=== PATIENT | female | born 1985 | race Caucasian/White ===

== ENCOUNTER → 2018-06-22 09:00 | Outpatient (CLI) | payer OTHER, SELFPAY ==
[2018-06-22 08:55] VITALS: BMI 21.3
[2018-06-28 12:02] LABS: HPV APTIMA, High Risk Negative (Negative)
--- OUTSIDE RECORDS SUMMARY | 2018-08-08 22:34 | XMS RPT_ITS ---
:1985 Author Organization OHIP Care Team Providers Name Role Phone Leanne Manning Attending Unavailable Arvind Ramirez Referring Unavailable Leanne Manning Attending Unavailable Leanne Manning Referring Unavailable Arvind Ramirez Primary Care Unavailable ASSESSMENT, HEALTH RISK Attending Unavailable Arvind Ramirez Primary Care Unavailable PROBLEMS PROBLEMS DATE TYPE CONDITION / CODE ATTENDING STATUS SOURCE 06/23/2018 Unknown Z12.4 - Encounter Oj Manning for screening for [facility] malignant [facility] of cervix / Repository Z12.4(ICD-10) 06/22/2018 Unknown Z01.419 - Encounter Oj Manning for gynecological [facility] (general) (routine) Repository without abnormal findings / Z01.419(ICD-10) PROCEDURES PROCEDURES No Procedure Records FoundRESULTS RESULTS FIXED INTEREST DEALER OFFICE VISIT Observed: 06/22/2018 Status: F Source: [place] REPORT 9:34 AM [facility] [place] REPOSITORY [facility] 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 discussed change in breast implants. Last PAP: done History of abnormal PAP: no Female Reproductive History Last Menstral Period: 05/30/18 Questions: Metorrhagia: No, Sexually active: Yes, Dyspareunia: No, PCB: No ROS Const Constitutional: Reports as per HPI; denies poor appetite, fatigue, increased appetite, weight gain or weight loss Cardio Card: Denies chest pain Resp Resp: Denies dyspnea or cough GI GI: Reports as per HPI; denies bloating, abdominal pain, constipation, vomiting or nausea : Reports as per HPI and other; denies blood in urine, vaginal odor, vaginal itching, vaginal dryness, vaginal discharge, urinary urgency, urinary incontinence, urinary frequency, pelvic pain, painful urination, difficulty urinating, prolapse symptoms or nipple discharge Skin Skin/Breast: Denies breast pain, breast skin changes, nipple discharge, breast lump or changing lesions Exam Const General: cooperative, healthy appearing, comfortable, no acute distress, well developed, well groomed [facility] Head: normal to inspection, normocephalic Ears: hearing grossly normal bilaterally, external ears normal Nose: external nose normal Face and sinus: normal facial exam Neck Neck: normal visual inspection, full ROM, no lymphadenopathy Thyroid: thyroid normal Chest Chest palpation AND inspection: normal inspection of the chest Breast inspection: normal inspection of the breasts, normal inspection of the axillae Breast palpation: normal palpation of the breasts, normal palpation of the axillae, no axillary lymphadenopathy Resp Effort AND Inspection: normal respiratory effort GI Inspection: normal to inspection, non-distended Palpation: no guarding, soft, no hepatosplenomegaly General: bladder normal to palpation External Female Exam: normal external appearance, normal appearance of the urethra, no lesions Urethra: normal appearance of the urethra, normal palpation Speculum Exam - Vagina: normal appearance of the vagina, normal vaginal discharge Speculum Exam - Cervix: normal appearance of the cervix, no cervical discharge, no lesions, nontender Bimanual Exam- Vagina AND Uterus: No cervical tenderness, normal bimanual exam, uterine size normal, bladder normal to palpation, uterine mobility normal, uterine consistency normal, uterus non-tender, no cervical motion tenderness Bimanual Exam- Adnexa, other: normal adnexae, no adnexal masses, adnexae non-tender Skin General: no rashes or lesions noted Neuro General: alert, moves all extremities, no focal motor deficits Extrem General: no pedal edema, normal to inspection Psych Appearance: grossly normal Mental Status: mental status grossly normal Affect: normal affect Speech and Movement: speech and movement normal Attitude: cooperative Assessment AND Plan Problems 1. Encounter for gynecological examination without abnormal finding Z01.419 Plan Cervical cancer screening: pap hpv Breast cancer screening: clinical STD prevention and contraceptive options including their risks, benefits, and alternatives were reviewed with the patient and she chooses: declines Encouraged maintenance of a healthy weight and active lifestyle and handout given. Calcium/vitamin D recommendations provided. Annual exam handout including recommendations for good health guidelines and basic screening information given. Problem list up to date, see problem list details for any additional plan information. follow up in one year for annual health maintenance exam or sooner if needed. Orders Orders: Coding Level of Care Code Off vis,est,prev 18-39yrs Diagnoses Encounter for gynecological examination without abnormal finding Z01.419 Gynecological examination findings: abnormal findings ABSENT 06/22/18 0934 <Electronically signed by Leanne Manning MD> Date Leanne Manning MD Cosigner Signature: Date (if applicable) CC: PAP IG HPV APTIMA Collected: 06/22/2018 Status: F Source: [place] ,45 9:00 AM [facility] [place] REPOSITORY Order Comment: CYTOLOGY INFORMATION: - CLINICAL INFORMATION: - DATE LMP/MENOPAUSE: - COLLECTION VIAL: Thin Prep Vial - URGENT CARE PHYSICIAN ASSISTANT SOURCE: CERVICAL - COLLECTION TECHNIQUE: CX BROOM ONLY Specimen Comment: [id number] Specimen Comment: Source.............Cervix Specimen Comment: No. of containers..01 ThinPrep Vial TYPE CODE TESTS RESULT OUT OF RANGE REFERENCE UNITS LAB L7400.0800 . Normal DIAGN Comment Result Comment: NEGATIVE FOR INTRAEPITHELIAL LESION AND MALIGNANCY. THIS SPECIMEN WAS RESCREENED PART OF OUR INSPECTOR GENERAL PROGRAM. LAB L7400.0900 . Normal ADEQ Comment Result Comment: Satisfactory for evaluation. Endocervical and/or squamous metaplastic cells (endocervical component) are present. LAB L7400.1400 . Normal PERFORM Comment Result Comment: Hilary Cerda, Right Of Way Supervisor (ASCP) LAB L7400.1500 . Normal QC Comment REV Result Comment: Sneha Vega, Supervisory Right Of Way Supervisor (ASCP) LAB L7400.2575 . Normal TEST METHOD Comment Result Comment: This liquid based ThinPrep(R) pap test was screened with the use of an image guided system. LAB L7400.2600 . Normal . COMM LAB L7400.2700 . Normal PAPSMR Comment Result Comment: The Pap smear is a screening test designed to aid in the detection of premalignant and malignant conditions of the uterine cervix. It is not a diagnostic procedure and should not be used as the sole means of detecting cervical cancer. Both false-positive and false-negative reports do occur. LAB L7400.2760 Negative Normal HPV APTIMA, Negative HR Result Comment: This test detects fourteen high-risk HPV types (16/18/31/33/35/39/45/ 51/52/56/58/59/66/68) without differentiation. Performed at: [facility] - [facility] [id number] Lap Cutter: Ila Johnson MD, Phone: [phone] Performed at: =[facility] - [facility] [address] [id number] Lap Cutter: Ila Johnson MD, Phone: [phone] Performed By: #### L7400.0280 #### [facility] (refer to report for specific site) refer to report for address and phone number ASHANTI, EMPLOYEE Collected: 08/29/2017 Status: F Source: [place] 6:12 AM [facility] [place] REPOSITORY TYPE CODE TESTS RESULT OUT OF RANGE REFERENCE UNITS LAB L100.1000 4.4-11.0 K/mm3 Normal WBC 5.3 LAB L100.1200 4.2-5.4 M/mm3 Normal RBC 4.52 LAB L100.1300 12.0-15.0 g/dl Normal HGB 13.6 LAB L100.1400 37-47 % Normal HCT 41.5 LAB L100.1500 81-99 fL Normal MCV 91.8 LAB L100.1600 27.0-32.0 pg Normal MCH 30.1 LAB L100.1700 32-36 g/gl Normal MCHC 32.8 LAB L100.1810 11.6-14.6 % Normal RDW CV 13.0 LAB L100.1820 35.1-43.9 fl Normal RDW SD 43.0 LAB L100.1900 150-450 K/mm3 Normal PLT 203 LAB L100.2000 6.2-12.0 fl Normal MPV 10.9 LAB L100.2110 47-70 % Low NEUT% 46.7 LAB L100.2210 19-41 % High LY% 41.9 LAB L100.2310 0-10 % Normal MONO% 8.8 LAB L100.2410 0-5 % Normal EO% 1.7 LAB L100.2510 0-1 % Normal BASO% 0.7 LAB L100.2620 2.0-7.7 X10 3/uL Normal Absolute Neut 2.5 LAB L100.2720 0.83-4.51 X10 3/ul Normal Absolute Lymph 2.24 Performed By: #### L100.0200 #### [facility] [address] [place], [address] EMPLOYEE PROFILE Collected: 08/29/2017 Status: F Source: [place] 6:12 AM [facility] [place] REPOSITORY TYPE CODE TESTS RESULT OUT OF RANGE REFERENCE UNITS LAB L501.0100 74-106 mg/dL Normal GLU 83 Result Comment: Please note revised GLUCOSE reference range effective 2017. LAB L501.1000 7-18 mg/dL Normal BUN 15 LAB L501.1100 0.55-1.02 mg/dL Normal CREAT,SERUM 0.56 Result Comment: The validity of the calculated GFR AND GFRAA in patients over 70 years has not been determined. Clinical correlation is essential. LAB L501.1110 >60 mL/min Normal EST GFR 132 Result Comment: Non- GFR Calc LAB L501.1115 >60 mL/min Normal EST GFR - AA 159 Result Comment: GFR Calc LAB L501.1300 10-20 RATIO High BUN/CRE 26.5 LAB L501.1400 2.6-6.0 mg/dL Normal URIC 4.2 Result Comment: The drugs N-Acetylcysteine and Metamizole may falsely depress this assay. LAB L501.1500 6.4-8.2 g/dL Normal T PROT 7.4 LAB L501.1800 3.2-5.0 g/dL Normal ALB 4.0 LAB L501.1950 2.2-4.2 g/dL Normal GLOB 3.4 LAB L501.2000 0.9-2.4 RATIO Normal A/G 1.2 LAB L501.2200 8.5-10.1 mg/dL Normal CA 8.7 LAB L501.2300 2.5-4.9 mg/dL Normal PHOS 3.3 LAB L501.4100 15-37 U/L Normal AST 19 LAB L501.4305 45-117 U/L Normal ALK P 70 LAB L501.4405 13-56 U/L Normal ALT 24 Result Comment: Please note revised ALT reference range effective 2017. LAB L501.4600 0.20-1.00 mg/dL Normal T BILI 0.50 LAB L501.4700 0.00-0.30 mg/dL Normal D BILI 0.12 LAB L501.4900 200 mg/dL Normal CHOL 132 Result Comment: <200 mg/dL Desirable 200-240 mg/dL Borderline >240 mg/dL High Risk LAB L501.5000 mg/dL Normal TRIG 65 Result Comment: The drugs N-Acetylcysteine and Metamizole may falsely depress this assay. Serum Triglycerides Reference Interval Normal <150 mg/dL Borderline high 150 - 199 mg/dL High 200 - 499 mg/dL Very High > or = 500 mg/dL LAB L501.5300 136-145 mmol/L Normal NA 138 LAB L501.5600 3.5-5.1 mmol/L Normal K 3.6 LAB L501.5900 98-107 mmol/L Normal CL 103 LAB L501.6100 21.0-32.0 mmol/L Normal CO2 26.0 LAB L501.6200 5-15 Normal 9 GAP LAB L501.6400 mg/dL Normal HDL 56 Result Comment: The drugs N-Acetylcysteine and Metamizole may falsely depress this assay. Reference Range HDL <40 mg/dL Low HDL Cholesterol HDL >or= 60 mg/dL High HDL Cholesterol LAB L501.6475 Normal CHOL:HDL 2.40 LAB L501.6500 0-130 mg/dL Normal LDL 63 LAB L501.6600 5-40 mg/dL Normal VLDL 13 LAB L504.2610 84-246 U/L Normal LDH 144 Performed By: #### L500.2900 #### [facility] [address] [place], [address] NICOTINE URINE DRUG Collected: 08/29/2017 Status: F Source: [place] SCREEN 6:12 AM [facility] [place] REPOSITORY TYPE CODE TESTS RESULT OUT OF RANGE REFERENCE UNITS LAB L505.6250 TO BE Normal CONFIRMED Result Comment: CONFIRMATORY TESTING FOR ALL POSITIVE URINE DRUG SCREEN RESULTS WILL ONLY BE SENT OUT UPON PHYSICIAN ORDER. The results of Urine Drug Screen methods provide only preliminary analytical test results. A more specific alternate chemical method must be used in order to obtain a confirmed analytical result. Gas chromatography/mass spectrometery (GC/MS) is the preferred confirmatory method. Clinical consideration and professional judgement should be applied to any drug of abuse test result, particularly when preliminary positive results are used. LAB L505.6270 <200 ng/mL Normal COT DRG Negative SCREEN Result Comment: Cotinine is the first-stage metabolite of Nicotine. Performed By: #### L505.6240 #### [facility] [address] [place], [address] URINALYSIS, EMPLOYEE Collected: 08/29/2017 Status: F Source: [place] 6:12 AM [facility] [place] REPOSITORY TYPE CODE TESTS RESULT OUT OF RANGE REFERENCE UNITS LAB L400.3000 Yellow COLOR Normal Yellow LAB L400.3050 Clear Normal CLARITY Clear LAB L400.3200 Normal mg/dl Normal GLUCOSE, UR Normal LAB L400.3300 Negative mg/dL Normal BILIRUBIN URINE Negative LAB L400.3400 Negative mg/dl Normal KETONE UR Negative LAB L400.3465 1.002-1.030 Normal SP.GR. DIPSTX 1.005 LAB L400.3550 5.0 - 8.0 pH UR Normal 7.0 LAB L400.3600 Negative mg/dl PROT Normal DIPSTX Negative LAB L400.3700 Normal mg/dl Normal UROBILI Normal LAB L400.3750 Negative Normal NITRITE UR Negative LAB L400.3780 Negative /ul Normal OCCULT BLOOD-UR Negative LAB L400.3800 Negative /ul LEUK Normal ESTERASE Negative Performed By: #### L400.0100 #### [facility] [address] [place], [address] ALLERGIES ALLERGIES DATE TYPE / CODE NAME / CODE REACTION SEVERITY SOURCE 06/22/2018 Drug No Known Unknown [facility] Allergy/4160 Allergies/F00 Hospital 67211(SNOMED [id number](RXNOR Repository CT) M) ENCOUNTERS ENCOUNTERS ADMIT/DISCHARGE ACCOUNT ADMITTING ENCOUNTER LOCATION SOURCE NUMBER CLASS 06/22/2018 [id number] Ambulatory [facility] 6 [facility] ing:LABSPEC Repository 06/22/2018/ [id number] Ambulatory BMSBuilding:B [place] [address] [place] Repository 08/29/2017 [id number] Ambulatory [place] [address] [facility] ing:LAB Repository PAYERS PAYERS ENCOUNTER GUARANTOR PAYER SUBSCRIBER SOURCE 06/22/2018 ELIEL [id number] Primary [facility] ELIEL CALVILLOB: [place] [address] [id number] [address]Tel: [phone]) Number: Repository [phone] () [id number] Date:[id number] [address] [address], [place] [address]FW: CHECK WEBSITE 06/22/2018 Secondary NOT GIVENUNK [place] Insurance:SELF PAY [facility] Number: Effective Repository Date:2018-06-22 06/22/2018 ELIEL [id number] Primary Insurance:[facility] ELIEL CALVILLOB: [place] [id number] [address]Hqn: [phone]) Number: Repository [phone] () [id number] Date:[id number] [address] [address], [place] [address]BY: CHECK WEBSITE 06/22/2018 Secondary NOT GIVENUNK [place] Insurance:SELF PAY [facility] Number: Effective Repository Date:2018-03-22 08/29/2017 Eliel [id number] Primary NOT GIVENUNK [place] [address] Insurance:SELF PAY [facility] [address]Iwc: [phone]) Number: Effective Repository [phone] () Date:2017-08-29
== END ==
PROVIDERS: Family Provider Family Medicine; PCP Family Medicine; Referring Provider Obstetrics & Gynecology; Visit Provider Obstetrics & Gynecology
DX: Z12.4 Encounter for screening for malignant neoplasm of cervix (principal)
CPT/HCPCS: 87624; 88175; G0145

== ENCOUNTER → 2022-01-07 | Outpatient (CLI) | payer OTHER, SELFPAY ==
[2022-01-12 16:48] LABS: HPV APTIMA, High Risk Negative (Negative)
== END | disposition home or self-care (01) ==
LOC: LABSPEC 12:19
PROVIDERS: PCP Family Medicine; Visit Provider Obstetrics & Gynecology
DX: Z12.4 Encounter for screening for malignant neoplasm of cervix (principal)
CPT/HCPCS: 87624; 88175; G0145

== ENCOUNTER → 2025-05-06 | Outpatient (CLI) | payer OTHER, SELFPAY ==
--- NOTE | 2025-05-06 07:15 | BI_ITS ---
EXAM: SCRN MAMM (CAD)W/LASHONDA BILAT DATE: 05/06/2025 CLINICAL HISTORY: F, Age 40 y/o , SCREENING MAMMOGRAM She has bilateral breast implants. TECHNIQUE: Procedure Code: [id number] Modality: MG Procedure: SCRN MAMM (CAD) W/LASHONDA BILAT. Pushback Jesús CC and pushback Jesús MLO views of the right and left breast were also performed COMPARISON: None. This is a baseline study. FINDINGS: TISSUE DENSITY: The breasts are extremely dense, which lowers the sensitivity of mammography. Small masses could be obscured. Bilateral Breast Mammographic Findings: No significant masses, calcifications or other abnormalities are identified. Extremely dense breast tissue is seen in both breasts. Both breast implants appear to be intact. A benign round microcalcification is seen in the left breast. BI/SCRN MAMM (CAD)W/LASHONDA BILAT IMPRESSION: Benign screening mammogram OVERALL FINAL ASSESSMENT BI-RADS 2: BENIGN RECOMMENDATION: Routine annual follow-up in 1 Year Additional Recommendation none A letter with findings and recommendations will be mailed to the patient. Reading Location: [id number]
--- OUTSIDE RECORDS SUMMARY | 2025-05-06 07:24 | XMS RPT_ITS | CCD ---
Author Organization [facility] Care Team Providers Care Police Shift Commander Name Role Phone Leanne Manning MD Unavailable [phone] Krissy Robison LPN Unavailable Unavailab Krissy Thompson LPN Unavailable Unavailab Leanne Hawk MD Unavailable [phone] Arvind Ramirez Primary Care Provider [phone] Dr. Arvind Ramirez Referring Provider [phone] Shelley Higgins Attending Provider Dr. Leanne Manning MD Primary Care Provider Assessment, Health Risk Attending Provider Unamichael ilable Assessment, Health Risk Referring Provider Unava ilable Dr. Arvind Ramirez MD Referring Provider [phone] Dr. Leanne Manning MD Attending Provider Arvind Ramirez Referring Unavailable Leanne Manning Attending Unavailable Assessment, Health Risk Attending Unavaila ble Assessment, Health Risk Referring Unavaila ble Leanne Manning Primary Care Unavailable Leanne Manning Attending Unavailable Leanne Manning Referring Unavailable Arvind Ramirez Primary Care Unavailable Medications Current Medications Medication Drug Class(es) Dates Sig (Normalized) Sig (Original) [place] (Nk) (1 source) Start: 06-26-2020 [place] (Nk) Active June 26, 2020 1:00am norethindrone 0.35 mg oral tablet (2 sources) Start: 01-24-2024 End: 01-16-2025 take 1 tablet by mouth once daily Norethindrone (Contraceptive) (Hazel) 0.35 mg tablet Active 0.35 mg PO daily 84 4 January 16, 2025 8:27am Tapinarof (Vtama) 1 % cream (1 source) Start: 02-05-2025 Tapinarof (Vtama) 1 % cream Active 1 NMA TOPICAL daily February 05, 2025 12:00am Completed/Discontinued Medications Medication Drug Class(es) Dates Sig (Normalized) Sig (Original) amoxicillin 500 mg oral capsule (5 sources) Penicillin-class Antibacterial Start: 11-22-2016 AMOXICILLIN 500 MG CAPS 2 capsules twice daily AMOXICILLIN [id number] Renan JAMES drospirenone 4 mg oral tablet (2 sources) Progestin Start: 01-23-2024 End: 01-24-2024 take 1 tablet by mouth once daily Drospirenone (Contraceptive) (Slynd) 4 mg (28) tablet Discontinued 1 {tbl} PO DAILY 07 07January 23, 2024 12:00am January 24, 2024 11:01am 21 day ethinyl estradiol 0.731402 mg/hr / etonogestrel 0.005 mg/hr vaginal system (1 source) Progestin, Estrogen Start: 01-13-2023 End: 01-16-2024 Etonogestrel-Ethiny l Estradiol (Nuvaring) 0.12-0.015 mg/24 hr ring Discontinued 1 NMA VAGINAL ONCE 08 07 11January 13, 2023 12:00am January 16, 2024 10:[address]am place ring vaginally for four weeks and then remove and immediately replace with new ring Etonogestrel-Ethiny l Estradiol (Nuvaring) 0.12-0.015 mg/24 hr ring (1 source) Start: 01-16-2024 End: 01-23-2024 Etonogestrel-Ethiny l Estradiol (Nuvaring) 0.12-0.015 mg/24 hr ring Discontinued 1 NMA VAGINAL ONCE 3 05 11January 16, 2024 10:34am January 23, 2024 8:[address] ring vaginally for four weeks and then remove and immediately replace with new ring fluocinonide 0.0005 mg/mg topical ointment (2 sources) Corticosteroid Start: 06-25-2019 End: 09-20-2019 Fluocinonide 0.05 % ointment Discontinued 1 NMA TOPICAL TWICE A DAY 30 June 25, 2019 1:00am September 20, 2019 2:12pm ibuprofen 400 mg oral tablet (2 sources) Nonsteroidal Anti-inflammatory Drug Start: 09-20-2019 End: 06-26-2020 take 1 tablet by mouth every eight hours Ibuprofen 400 mg tablet Discontinued 400 mg PO Q8H September 20, 2019 12:00am June 26, 2020 9:30am nitrofurantoin, macrocrystals 25 mg / nitrofurantoin, monohydrate 75 mg oral capsule (1 source) Nitrofuran Antibacterial Start: 02-06-2024 End: 02-13-2024 take 1 capsule by mouth twice daily at mealtime Nitrofurantoin Monohyd/M-Cryst (Macrobid) 100 mg capsule Discontinued 100 mg PO TWICE A DAY 14 7 0 February 06, 2024 12:00am February 12, 2024 12:00am February 13, 2024 12:04am must administer with a meal/food Vit,Rhdg45-Oirw-Xsp ic (1 source) Start: 07-24-2013 End: 06-17-2018 take 1 tablet by mouth once daily Vit,Othp41-Hrwq-Poo ic Discontinued 1 TABLET PO DAILY July 24, 2013 1:00am June 17, 2018 2:40pm Vit,Uwzo15-Fkxn-Xgc ic 1 TABLET tablet (1 source) Start: 07-24-2013 End: 06-17-2018 take 1 tablet by mouth once daily Vit,Lyhy16-Gosq-Ior ic 1 TABLET tablet Discontinued 1 {tbl} PO DAILY July 24, 2013 1:00am June 17, 2018 2:40pm rizatriptan 5 mg oral tablet (1 source) Serotonin-1b and Serotonin-1d Receptor Agonist Start: 01-19-2024 End: 02-05-2025 take 1 tablet by mouth every two hours as needed for headache Rizatriptan 5 mg tablet Discontinued 5 mg PO ONCE as needed for migraine headache 30 3 January 19, 2024 12:00am February 05, 2025 8:15am take 1 tab at onset of migraine and repeat in 2 hours as needed. valACYclovir 1000 mg oral tablet (2 sources) Herpesvirus Nucleoside Analog DNA Polymerase Inhibitor, Herpes Simplex Virus Nucleoside Analog DNA Polymerase Inhibitor, Herpes Zoster Virus Nucleoside Analog DNA Polymerase Inhibitor Start: 08-21-2019 End: 08-26-2019 Valacyclovir (Valtrex) 1 gram tablet Discontinued 1000 mg PO TWICE A DAY 10 5 0 August 21, 2019 1:00am August 25, 2019 1:00am August 26, 2019 1:08am Problems Active Problems Problem Classification Problem Date Documented Da te Episodic/Chronic Diseases of white blood cells (1 source) Decreased white blood cell count, unspecified; Translations: [Decreased white blood cell count, unspecified] Onset: 02-05-2025 Chronic Mood disorders (1 source) Premenstrual dysphoric disorder; Translations: [Premenstrual dysphoric disorder] 01-23-2024 Chronic Comment on above: increased migraines on nuvaring- plan Slynd Other acquired deformities (1 source) Scoliosis deformity of spine; Translations: [Scoliosis, unspecified] 07-29-2022 Chronic Other bone disease and musculoskeletal deformities (9 sources) Segmental and somatic dysfunction; Translations: [Segmental and somatic dysfunction of cervical region] 09-24-2019 Episodic Other inflammatory condition of skin (1 source) Psoriasis; Translations: [Psoriasis, unspecified] 02-05-2025 Chronic Other inflammatory condition of skin (2 sources) Lichen simplex chronicus; Translations: [Lichen simplex chronicus] 06-25-2019 Episodic Comment on above: suspect, ordered flu ocinolide and OTC hydrocortisone, derm consult if no resolution Other screening for suspected conditions (not mental disorders or infectious disease) (2 sources) Encounter for screening mammogram for malignant neoplasm of breast; Translations: [Encounter for screening mammogram for malignant neoplasm of breast] Onset: 02-05-2025 Episodic Spondylosis; intervertebral disc disorders; other back problems (2 sources) Sciatica; Translations: [Sciatica, unspecified side] 07-29-2022 Episodic Unclassified (1 source) Gynecologic examination ; Translations: [Encounter for gynecological examination (general) (routine) without abnormal findings] Onset: 02-18-2017 02-18-2017 Past or Other Problems Problem Classification Problem Date Documented Date Episodic/Chronic Other upper respiratory disease (5 sources) Pain in throat; Translations: [Acute pharyngitis, unspecified] Onset: 11-22-2016 11-22-2016 Episodic Other upper respiratory infections (5 sources) Streptococcal sore throat; Translations: [Streptococcal pharyngitis] Onset: 11-22-2016 11-22-2016 Episodic Results Test Name Value Interpretation Reference Range Facility Systems Analyst Developer Office Visit Reporton 02-05-2025 Systems Analyst Developer Office Visit Report [facility] [address], [address] [place] [address] OFFICE VISIT Date of Service: 02/05/25 MR#: [id number] Acct: [id number] Name: ELIEL PINA Rep #: [id number] : 1985 Provider: Dr. Leanne nix MD Age/Sex: 39/F [place] [facility] [place]: Signed Intake Vital Signs 01/19/24 09:24 02/05/25 08:12 Height 5 ft 1 in 5 ft 1 in Weight: 107 lb 2 oz BMI 20.2 BP 114/75 Intake Visit Reasons: 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) Dry Cell Tester Required: No Is patient in pain?: No Allergies No Known Allergies Allergy (Verified 02/05/25 08:15) Medications ???Medication ???Instructions ???Recorded ???Confirmed ???Type norethindrone (contraceptive) 0.35 0.35 mg PO QDAY #84 tabs 5 02/05/25 Rx mg tablet (Hazel) tapinarof 1 % topical cream (Vtama) 1 applic topical QDAY 02/05/25 02/05/25 History Is last menstrual period known: No Post menopausal: No Patient : No : No [facility] Medical History Psoriasis IBS (irritable bowel syndrome) Bilateral headaches Oligo-ovulation Surgical History History of breast augmentation Family History Other Hypertension Social History number of children: 3 current occupational status: employed 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 Date Name GA/Weeks Outcome Route Bth Weight Infant Gen Labor Lgth Anesthesia Del Locatn Provider FOB Unknown 2010 Liborio live - full term [facility] Yanira Unknown 2013 Erendira live - full term [facility] Unknown 2016 Lauryn live - full term [facility] HPI Encounter for routine gynecological examination Details: ELIEL PINA is a 39 year old who presents for annual exam. Last PAP: 12/28/2021 - normal History of abnormal PAP: Last mammogram: due this year History of abnormal mammogram: Colon cancer screening: nto due Other preventative health care screenings: PCP [facility] Female Reproductive History Questions: metorrhagia: No, sexually active: Yes, dyspareunia: No and PCB: No Menopausal Symptoms: No hot flashes, No night sweats, No weight change, No mood changes, No difficulty concentrating, No sleep problems and No change in libido ROS Const Constitutional: Reports as per HPI; Denies fatigue, increased appetite, poor appetite, night sweats, weight gain or weight loss Cardio Card: Denies chest pain Resp Resp: Denies cough or dyspnea GI GI: Reports as per HPI; Denies abdominal pain, bloating, constipation, nausea or vomiting : Reports as per HPI and other; Denies difficulty voiding, dysuria, hematuria, hot flashes, nipple discharge, pelvic pain, prolapse symptoms, urinary frequency, urinary incontinence, urinary urgency, vaginal discharge, vaginal dryness, vaginal odor or vaginal pruritus Skin Skin/Breast: Denies changing lesions, breast mass, breast pain, breast skin changes or nipple discharge Psych Psych: Denies anxiety, change in libido, depression or difficulty concentrating Exam Const General: cooperative, healthy appearing, comfortable, no acute distress, well developed and well groomed [facility] Head: normal to inspection and normocephalic Ears: hearing grossly normal bilaterally and external ears normal Nose: external nose normal Face and sinus: normal facial exam Neck Neck: normal visual inspection, full ROM and no lymphadenopathy Thyroid: thyroid normal Chest Chest palpation inspection: normal inspection of the chest Breast inspection: normal inspection of the breasts and normal inspection of the axillae Breast palpation: normal palpation of the breasts, normal palpation of the axillae and no axillary lymphadenopathy Resp Effort Inspection: normal respiratory effort GI Inspection: normal to inspection and non-distended Palpation: soft, no hepatosplenomegaly and no guarding General: bladder normal to palpation External Female Exam: normal external appearance, normal appearance of the urethra and no lesions Urethra: normal appearance of the urethra and normal palpation Speculum Exam - Vagina: normal appearance of the vagina and normal (more content not included)... Normal [facility] Absolute lymphocyte countOrd ered By: HEALTH ASSESSMENT on 02-01-2025 Lymphocytes Auto (Unsp spec) [#/Vol] 1.80 10*3/uL 0.83-4.51 [facility] Absolute neutrophil countOrd ered By: HEALTH ASSESSMENT on 02-01-2025 Neutrophils (Bld) [#/Vol] 1.7 10*3/uL Low 2.0-7.7 [facility] Absolute nucleated red blood cell countOrdered By: HEALTH ASSESSMENT on 02-01-2025 Nucleated RBC (Bld) [#/Vol] 0.00 10*3/uL 0-5 [facility] Anion gap in Serum or Plasma Ordered By: HEALTH ASSESSMENT on 02-01-2025 Anion gap [Moles/Vol] 11 mmol/L 5-15 [place] BUN/creatinine ratioOrdered By: HEALTH ASSESSMENT on 02-01-2025 Urea nitrogen/Creatinine [Mass ratio] 27.9 mg/mg High 10-20 [facility] Bilirubin Test strip Ql (U)O rdered By: HEALTH ASSESSMENT on 02-01-2025 Bilirubin Ql (U) Negative Negative [facility] Bilirubin directOrdered By: HEALTH ASSESSMENT on 02-01-2025 Bilirubin.direct [Mass/Vol] 0.15 mg/dL 0.00-0.30 [facility] Bilirubin, totalOrdered By: HEALTH ASSESSMENT on 02-01-2025 Bilirubin [Mass/Vol] 0.34 mg/dL 0.00-1.30 [facility] Blood band neutrophil count as percentage of total leukocytesOrdered By: HEALTH ASSESSMENT on 02-01-2025 Band form neutrophils/100 WBC (Bld) 43.4 % Low 47-70 [facility] CBC, Employeeon 02-01-2025 Absolute Lymph 1.80 X10 3/uL Normal 0.83-4.51 [facility] Comment on above: Performed By: #### L 500.2900, L400.0100, L100.0200 #### [facility] [address] [place], [address] Absolute Neut 1.7 X10 3/uL Low 2.0-7.7 [facility] Comment on above: Performed By: #### L 500.2900, L400.0100, L100.0200 #### [facility] [address] [place], [address] Basophils/100 WBC (Bld) 0.5 % Normal 0-1 [facility] Comment on above: Performed By: #### L 500.2900, L400.0100, L100.0200 #### [facility] [address] [place], [address] Eosinophils/100 WBC (Bld) 2.2 % Normal 0-5 [facility] Comment on above: Performed By: #### L 500.2900, L400.0100, L100.0200 #### [facility] [address] [place], [address] Erythrocyte distribution width (RBC) [Ratio] 12.5 % Normal 11.6-14.6 [facility] Comment on above: Performed By: #### L 500.2900, L400.0100, L100.0200 #### [facility] [address] [place], [address] Hematocrit (Bld) [Volume fraction] 41.0 % Normal 37-47 [facility] Comment on above: Performed By: #### L 500.2900, L400.0100, L100.0200 #### [facility] [address] [place], [address] Hemoglobin (Bld) [Mass/Vol] 13.2 g/dL Normal 12.0-15.0 [facility] Comment on above: Performed By: #### L 500.2900, L400.0100, L100.0200 #### [facility] [address] [place], [address] Lymphocytes/100 WBC (Bld) 44.9 % High 19-41 [facility] Comment on above: Performed By: #### L 500.2900, L400.0100, L100.0200 #### [facility] [address] [place], [address] MCH (RBC) [Entitic mass] 29.2 pg Normal 27.0-32.0 [facility] Comment on above: Performed By: #### L 500.2900, L400.0100, L100.0200 #### [facility] [address] [place], [address] MCHC (RBC) [Mass/Vol] 32.2 g/dL Normal 32-36 [place] Comment on above: Performed By: #### L 500.2900, L400.0100, L100.0200 #### [facility] [address] [place], [address] MCV (RBC) [Entitic vol] 90.7 fL Normal 81-99 [facility] Comment on above: Performed By: #### L 500.2900, L400.0100, L100.0200 #### [facility] [address] [place], [address] Monocytes/100 WBC (Bld) 9.0 % Normal 0-10 [facility] Comment on above: Performed By: #### L 500.2900, L400.0100, L100.0200 #### [facility] [address] [place], [address] Neutrophils/100 WBC (Bld) 43.4 % Low 47-70 [facility] Comment on above: Performed By: #### L 500.2900, L400.0100, L100.0200 #### [facility] [address] [place], [address] NRBC # 0.00 10 3/uL Normal 0-5 [facility] Comment on above: Performed By: #### L 500.2900, L400.0100, L100.0200 #### [facility] [address] [place], [address] Nucleated RBC (Bld) [#/Vol] 0 10*3/uL Normal 0-5 [facility] Comment on above: Performed By: #### L 500.2900, L400.0100, L100.0200 #### [facility] [address] [place], [address] Platelet mean volume (Bld) [Entitic vol] 10.0 fL Normal 6.2-12.0 [facility] Comment on above: Performed By: #### L 500.2900, L400.0100, L100.0200 #### [facility] [address] [place], [address] Platelets (Bld) [#/Vol] 240 10*3/uL Normal 150-450 [facility] Comment on above: Performed By: #### L 500.2900, L400.0100, L100.0200 #### [facility] [address] [place], [address] RBC (Bld) [#/Vol] 4.52 10*6/uL Normal 4.2-5.4 [facility] Comment on above: Performed By: #### L 500.2900, L400.0100, L100.0200 #### [facility] [address] [place], [address] RDW SD 41.3 fl Normal 35.1-43.9 [facility] Comment on above: Performed By: #### L 500.2900, L400.0100, L100.0200 #### [facility] [address] [place], [address] WBC (Bld) [#/Vol] 4.0 10*3/uL Low 4.4-11.0 [facility] Comment on above: Performed By: #### L 500.2900, L400.0100, L100.0200 #### [facility] [address] [place], [address] Calculated very low density lipoprotein (VLDL) cholesterol measurementOrdered By: HEALTH ASSESSMENT on 02-01-2025 Calculated very low density lipoprotein (VLDL) cholesterol measurement 7 mg/dL 5-40 [facility] Carbon dioxide, total [Moles /volume] in Central venous bloodOrdered By: HEALTH ASSESSMENT on 02-01-2025 CO2 [Moles/Vol] 23.5 mmol/L 21.0-32.0 [facility] Chloride assayOrdered By: HE ALTH ASSESSMENT on 02-01-2025 Chloride [Moles/Vol] 104 mmol/L 98-108 [facility] Employee Profileon LDH 168 U/L Normal 84-246 [facility] Comment on above: Performed By: #### L 500.2900, L400.0100, L100.0200 #### [facility] [address] [place], [address] Phosphate [Mass/Vol] 3.3 mg/dL Normal 2.7-4.5 [facility] Comment on above: Performed By: #### L 500.2900, L400.0100, L100.0200 #### [facility] [address] [place], [address] URIC 3.6 mg/dL Normal 2.6-6.0 [facility] Comment on above: Result Comment: The drugs N-Acetylcysteine and Metamizole may falsely depress this assay. Performed By: #### L 500.2900, L400.0100, L100.0200 #### [facility] [address] [place], [address] Erythrocyte distribution wid th ratioOrdered By: HEALTH ASSESSMENT on 02-01-2025 Erythrocyte distribution width (RBC) [Ratio] 12.5 % 11.6-14.6 [facility] Erythrocyte distribution wid th standard deviationOrdered By: HEALTH ASSESSMENT on 02-01-2025 Erythrocyte distribution width (RBC) [Ratio] 41.3 fl 35.1-43.9 [facility] Glomerular filtration rate ( GFR) estimation/1.73 sq m using serum, plasma, or whole bOrdered By: HEALTH ASSESSMENT on 02-01-2025 GFR/1.73 sq M.predicted among non-blacks MDRD (S/P/Bld) [Vol rate/Area] 116 mL/min/{1.73_m2} >60 [facility] Comment on above: mL/min/1.73m2 CKD-EP I Creatinine Equation (2020) Hematocrit Auto (Bld) [Volum e fraction]Ordered By: HEALTH ASSESSMENT on 02-01-2025 Hematocrit (Bld) [Volume fraction] 41.0 % 37-47 [facility] Hemoglobin measurementOrdere d By: HEALTH ASSESSMENT on 02-01-2025 Hemoglobin (Bld) [Mass/Vol] 13.2 g/dL 12.0-15.0 [facility] Ketones Test strip Ql (U)Ord ered By: HEALTH ASSESSMENT on 02-01-2025 Ketones Ql (U) Negative Negative [facility] LDL calc ser/plasOrdered By: HEALTH ASSESSMENT on 02-01-2025 Cholesterol in LDL [Mass/Vol] 92 mg/dL [facility] Comment on above: Ojyurcajwg=836-760 m g/dL & Higher Jqig=151 mg/dL or greater Laboratory - Chemistry and C hemistry - challengeOrdered By: HEALTH ASSESSMENT on 02-01-2025 AST [Catalytic activity/Vol] 19 U/L <32 [facility] Lactate dehydrogenase (LDH) measurementOrdered By: HEALTH ASSESSMENT on 02-01-2025 LDH [Catalytic activity/Vol] 168 U/L 84-246 [facility] MCV (mean corpuscular volume ) determinationOrdered By: HEALTH ASSESSMENT on 02-01-2025 MCV (RBC) [Entitic vol] 90.7 fL 81-99 [facility] Mean corpuscular hemoglobin (MCH) determinationOrdered By: HEALTH ASSESSMENT on 02-01-2025 MCH (RBC) [Entitic mass] 29.2 pg 27.0-32.0 [facility] Mean corpuscular hemoglobin concentration (MCHC) determinationOrdered By: HEALTH ASSESSMENT on 02-01-2025 MCHC (RBC) [Mass/Vol] 32.2 g/dL 32-36 [place] Mean platelet volume determi nationOrdered By: HEALTH ASSESSMENT on 02-01-2025 Platelet mean volume (Bld) [Entitic vol] 10.0 fL 6.2-12.0 [facility] Nitrite Test strip Ql (U)Ord ered By: HEALTH ASSESSMENT on 02-01-2025 Nitrite Ql (U) Negative Negative [facility] Nucleated red blood cell per centageOrdered By: HEALTH ASSESSMENT on 02-01-2025 Nucleated RBC/100 WBC (Bld) [Ratio] 0 % 0-5 [facility] Platelet countOrdered By: HE ALTH ASSESSMENT on 02-01-2025 Platelets (Bld) [#/Vol] 240 10*3/uL 150-450 [facility] Potassium measurement (mass/ volume)Ordered By: HEALTH ASSESSMENT on 02-01-2025 Potassium (Unsp spec) [Mass/Vol] 4.3 mmol/L 3.3-5.1 [facility] Protein Test strip Ql (U)Ord ered By: HEALTH ASSESSMENT on 02-01-2025 Protein Ql (U) 15 mg/dl High Negative [facility] RBC Auto (Bld) [#/Vol]Ordere d By: HEALTH ASSESSMENT on 02-01-2025 RBC (Bld) [#/Vol] 4.52 10*6/uL 4.2-5.4 [facility] Screening total cholesterol/ high density lipoprotein (HDL) cholesterol ratioOrdered By: HEALTH ASSESSMENT on 02-01-2025 Cholesterol.total/Barbara sterol in HDL [Mass ratio] 2.30 {ratio} [facility] Serum creatinine measurement (mass/volume)Ordered By: HEALTH ASSESSMENT on 02-01-2025 Creatinine [Mass/Vol] 0.63 mg/dL Low 0.70-1.20 [place] Serum globulin measurementOr dered By: HEALTH ASSESSMENT on 02-01-2025 Globulin (S) [Mass/Vol] 2.8 g/dL 2.2-4.2 [facility] Serum glucose measurement (m ass/volume)Ordered By: HEALTH ASSESSMENT on 02-01-2025 Glucose [Mass/Vol] 91 mg/dL 70-99 [facility] Serum or plasma alanine swift otransferase (ALT) measurementOrdered By: HEALTH ASSESSMENT on 02-01-2025 ALT [Catalytic activity/Vol] 16 U/L <35 [facility] Serum or plasma albumin hcelle urement (mass/volume)Ordered By: HEALTH ASSESSMENT on 02-01-2025 Albumin [Mass/Vol] 4.6 g/dL 3.5-5.0 [facility] Serum or plasma albumin/glob ulin mass ratioOrdered By: HEALTH ASSESSMENT on 02-01-2025 Albumin/Globulin [Mass ratio] 1.6 {ratio} 0.9-2.4 [facility] Serum or plasma alkaline karin sphatase measurementOrdered By: HEALTH ASSESSMENT on 02-01-2025 ALP [Catalytic activity/Vol] 69 U/L 35-104 [facility] Serum or plasma calcium chelle urement (mass/volume)Ordered By: HEALTH ASSESSMENT on 02-01-2025 Calcium [Mass/Vol] 9.4 mg/dL 7.6-11.0 [facility] Serum or plasma cholesterol in HDL measurement (mass/volume)Ordered By: HEALTH ASSESSMENT on 02-01-2025 Cholesterol in HDL [Mass/Vol] 76 mg/dL >40 [facility] Comment on above: National Cholesterol Education Program (NCEP) guidelines:<40 mg/dL: Low HDL-cholesterol (major risk factor for CHD)>= 60 mg/dL: High HDL-cholesterol (negative risk factor for CHD)HDL-cholesterol is affected by a number of factors, e.g. smoking, exercise, hormones, sex and age. Serum or plasma cholesterol measurement (mass/volume)Ordered By: HEALTH ASSESSMENT on 02-01-2025 Cholesterol [Mass/Vol] 175 mg/dL <201 [facility] Comment on above: Cholesterol level, D esirable <200 mg/dLBorderline high cholesterol 200-239 mg/dLHigh cholesterol >=240 mg/dLRecommendations of the NCEP Adult Treatment Panel for the following risk-cutoff thresholds for the [place] Citizen population. Serum or plasma urea nitroge n measurement (mass/volume)Ordered By: HEALTH ASSESSMENT on 02-01-2025 Urea nitrogen [Mass/Vol] 18 mg/dL 4-19 [facility] Serum or plasma uric acid me asurement (mass/volume)Ordered By: HEALTH ASSESSMENT on 02-01-2025 Urate [Mass/Vol] 3.6 mg/dL 2.6-6.0 [facility] Comment on above: The drugs N-Acetylcy steine and Metamizole may falsely depress this assay. Sodium levelOrdered By: [facility] ASSESSMENT on 02-01-2025 Sodium [Moles/Vol] 139 mmol/L 133-145 [facility] Total proteinOrdered By: A [facility] ASSESSMENT on 02-01-2025 Protein [Mass/Vol] 7.3 g/dL 5.9-8.4 [facility] Triglycerides measurementOrd ered By: HEALTH ASSESSMENT on 02-01-2025 Triglyceride [Mass/Vol] 34 mg/dL <199 [facility] Comment on above: The drugs N-Acetylcy steine and Metamizole may falsely depress this assay. Normal range: <150 mg/dLBorderline High: 150-199 mg/dLHigh: 200-499 mg/dLVery High: >500 mg/dL Urinalysis, Employeeon 02-01 BILIRUBIN URINE Negative Normal Negative [facility] Comment on above: Order Comment: Urine , Random Performed By: #### L 500.2900, L400.0100, L100.0200 #### [facility] Laboratory [address] [place], [address] Clarity (U) Clear Normal Clear [facility] Comment on above: Order Comment: Urine , Random Performed By: #### L 500.2900, L400.0100, L100.0200 #### [facility] [address] [place], [address] Color (U) Yellow Normal Yellow [facility] Comment on above: Order Comment: Urine , Random Performed By: #### L 500.2900, L400.0100, L100.0200 #### [facility] [address] [place], [address] GLUCOSE, UR Normal Normal Normal [facility] Comment on above: Order Comment: Urine , Random Performed By: #### L 500.2900, L400.0100, L100.0200 #### [facility] [address] [place], [address] KETONE UR Negative Normal Negative [facility] Comment on above: Order Comment: Urine , Random Performed By: #### L 500.2900, L400.0100, L100.0200 #### [facility] [address] [place], [address] LEUK ESTERASE 25 /ul Abnormal Negative [facility] Comment on above: Order Comment: Urine , Random Performed By: #### L 500.2900, L400.0100, L100.0200 #### [facility] [address] [place], [address] Nitrite Ql (U) Negative Normal Negative [facility] Comment on above: Order Comment: Urine , Random Performed By: #### L 500.2900, L400.0100, L100.0200 #### [facility] [address] [place], [address] OCCULT BLOOD-UR Negative Normal Negative [facility] Comment on above: Order Comment: Urine , Random Performed By: #### L 500.2900, L400.0100, L100.0200 #### [facility] [address] [place], [address] pH UR 6.0 Normal 5.0 - 8.0 [facility] Comment on above: Order Comment: Urine , Random Performed By: #### L 500.2900, L400.0100, L100.0200 #### [facility] [address] [place], [address] PROT DIPSTX 15 mg/dl Abnormal Negative [facility] Comment on above: Order Comment: Urine , Random Performed By: #### L 500.2900, L400.0100, L100.0200 #### [facility] [address] [place], [address] SP.GR. DIPSTX 1.020 Normal 1.002-1.030 [facility] Comment on above: Order Comment: Urine , Random Performed By: #### L 500.2900, L400.0100, L100.0200 #### [facility] [address] [place], [address] UROBILI Normal Normal Normal [facility] Comment on above: Order Comment: Urine , Random Performed By: #### L 500.2900, L400.0100, L100.0200 #### [facility] [address] [place], [address] Urine clarityOrdered By: A [facility] ASSESSMENT on 02-01-2025 Clarity (U) Clear Clear [facility] Urine color determinationOrd ered By: HEALTH ASSESSMENT on 02-01-2025 Color (U) Yellow Yellow [facility] Urine glucose detectionOrder ed By: HEALTH ASSESSMENT on 02-01-2025 Glucose Ql (U) Normal mg/dl Normal [facility] Urine leukocyte esterase det ection by dipstickOrdered By: HEALTH ASSESSMENT on 02-01-2025 Leukocyte esterase Test strip Ql (U) 25 /ul High Negative [facility] Urine pHOrdered By: HEALTH A SSESSMENT on 02-01-2025 pH (U) 6.0 [pH] 5.0 - 8.0 [facility] Urine specific gravity measu rementOrdered By: HEALTH ASSESSMENT on 02-01-2025 Specific gravity (U) [Rel density] 1.020 1.002-1.030 [facility] Urine urobilinogen measureme ntOrdered By: HEALTH ASSESSMENT on 02-01-2025 Urobilinogen Ql (U) Normal mg/dl Normal [place] White blood cell (WBC) count Ordered By: HEALTH ASSESSMENT on 02-01-2025 WBC (Bld) [#/Vol] 4.0 10*3/uL Low 4.4-11.0 [facility] Cervical or vagninal specime n microscopic examination by cytology stain (reported ason 01-07-2022 Cytology report Cyto stain Doc (Cvx/Vag) Comment . [facility] Work Phone: Comment on above: The Pap smear is a s creening test designed to aid in thedetection of premalignant and malignant conditions of theuterine cervix. It is not a diagnostic procedure andshould not be used as the sole means of detecting cervicalcancer. Both false-positive and false-negative reports dooccur. Detection in cervical specim en of any of human papilloma virus (HPV) 16, 18, 31, 33,on 01-07-2022 HPV 16+18+31+33+35+39+45+51 +52+56+58+59+66+68 DNA Probe+sig amp Ql (Cvx) Negative Negative [facility] Work Phone: Comment on above: This nucleic acid am plification test detects fourteen high-risk HPV types (16,18,31,33,35,39,45,51,52,56,58,59,66,68)without differentiation.Performed at: - [facility] [id number] Director: Ila Johnson MD, Phone: [phone] at: = - [facility] [address] [id number] Director: Ila Johnson MD, Phone: [phone] Laboratory - Cytologyon 12-11 Table Assembler Cyto stain Nom (Cvx/Vag) [ID] Comment . [facility] Work Phone: Comment on above: Nataliya Posada, Nurse Administrator (ASCP) Laboratory - Miscellaneous t estson 01-07-2022 Service comment (Unsp spec) [Interp] Comment . [facility] Work Phone: Comment on above: This liquid based Th inPrep(R) pap test was screened withthe use of an image guided system. Service comment (Unsp spec) [Interp] . . [facility] Work Phone: No Panel Informationon 01-07 Pathology report final diagnosis Narrative Comment . [facility] Work Phone: Comment on above: NEGATIVE FOR INTRAEP ITHELIAL LESION OR MALIGNANCY. PROGRESSon 04-12-2019 PROGRESS HNO ID: [id number] Author: Fernanda Serra Service: ? Author Type: Nurse Practitioner Type: Progress Notes Filed: 04/12/2019 8:03 AM Note Text: Spoke with pt, she is having a cold sore breakout on her chin. Valacyclovir sent to local pharmacy. Fernanda Serra, [employer]AVERN [employer] ATTENDANT.MIKY Normal [facility] Office Visit: est annualon 0 02-18-2017 Documentation of current medications (procedure) Done Invalid Interpretation Code [facility] Fall risk assessment No Invalid Interpretation Code [facility] Hemoglobin.gastrointest inal Ql (St) not done Invalid Interpretation Code [facility] Protein mass conc Done [facility] Tobacco smoking status NHIS Never Invalid Interpretation Code [facility] Tobacco smoking status NHIS Never smoker [facility] Tobacco use [facility] Never smoker Invalid Interpretation Code [facility] Lab Report: CBC, Employeeon 02-09-2017 Basophils/100 leukocytes 0.3 % Invalid Interpretation Code 0-1 [facility] Basophils/100 WBC (Bld) 0.3 % 0-[address] [facility] Eosinophils/100 leukocytes 1.9 % Invalid Interpretation Code 0-5 [facility] Eosinophils/100 WBC (Bld) 1.9 % 0-5 [facility] Erythrocyte distribution width Ratio (RBC) 12.6 % 11.6-14.6 [facility] Erythrocyte distribution width Ratio (RBC) 41.0 fL 35.1-43.9 [facility] Erythrocytes (RBC) 4.87 10*6/uL Invalid Interpretation Code 4.2-5.4 [facility] Hematocrit (HCT) 43.6 % Invalid Interpretation Code 37-47 [facility] Hematocrit Volume Fraction (Bld) 43.6 % 37-47 [facility] Hemoglobin mass conc (Bld) 14.5 g/dL Invalid Interpretation Code 12.0-15.0 [facility] Lymphocytes 2.58 X10 3/UL Invalid Interpretation Code 0.83-4.51 [facility] Lymphocytes #/vol (Bld) 2.58 X10 3/UL 0.83-4.51 [facility] Lymphocytes/100 leukocytes 45.1 % High 19-41 [facility] Lymphocytes/100 WBC (Bld) 45.1 % High 19-41 [facility] MCH 29.8 pg Invalid Interpretation Code 27.0-32.0 [facility] MCH Entitic mass (RBC) 29.8 pg 27.0-32.0 Bl [facility] MCHC 33.3 G/GL Invalid Interpretation Code 32-36 [facility] MCHC mass conc (RBC) 33.3 G/GL 32-36 [facility] MCV 89.5 fL Invalid Interpretation Code 81-99 [facility] MCV Entitic volume (RBC) 89.5 fL 81-99 [facility] Monocytes/100 leukocytes 8.4 % Invalid Interpretation Code 0-10 [facility] Monocytes/100 WBC (Bld) 8.4 % 0-[address] [facility] neutrophil count, blood 2.5 X10 3/UL Invalid Interpretation Code 2.0-7.7 [facility] Neutrophils #/vol (Bld) 2.5 X10 3/UL 2.0-7.7 [facility] Neutrophils/100 leukocytes 44.1 % Low 47-70 [facility] Neutrophils/100 WBC (Bld) 44.1 % Low 47-70 [facility] Platelet mean volume Entitic volume (Bld) 10.2 fL 6.2-12.0 [facility] Platelets 249 10*3/mm3 Invalid Interpretation Code 150-450 [facility] Platelets #/vol (Bld) 249 10*3/mm3 150-[address] [facility] PMV by Samra 10.2 fL Invalid Interpretation Code 6.2-12.0 [facility] RBC #/vol (Bld) 4.87 10*6/uL 4.2-5.4 [facility] RDW-CA 12.6 % Invalid Interpretation Code 11.6-14.6 [facility] red blood cell distribution width, size density 41.0 fL Invalid Interpretation Code 35.1-43.9 [facility] WBC #/vol (Bld) 5.7 10*3/uL 4.4-11.0 [facility] WBC (Leukocytes) 5.7 10*3/uL Invalid Interpretation Code 4.4-11.0 [facility] Lab Report: Employee Profile on 02-09-2017 Albumin mass conc 4.7 g/dL Invalid Interpretation Code 3.4-5.0 [facility] Albumin/Globulin mass ratio 1.1 {ratio} Invalid Interpretation Code 0.9-2.4 [facility] Alkaline phosphatase (ALP) 95 U/L Invalid Interpretation Code 45-117 [facility] ALP enzyme act/vol (Bld) 95 U/L 45-117 [facility] ALT enzyme act/vol 21 U/L Invalid Interpretation Code 12-78 [facility] Anion gap 6 mmol/L Invalid Interpretation Code 5-15 [facility] Anion gap molar conc 6 mmol/L 5-15 [facility] AST enzyme act/vol 17 U/L Invalid Interpretation Code 15-37 [facility] Bilirubin mass conc 0.60 mg/dL Invalid Interpretation Code 0.20-1.00 [facility] Bilirubin.direct mass conc 0.12 mg/dL Invalid Interpretation Code 0.00-0.30 [facility] Calcium mass conc 9.4 mg/dL Invalid Interpretation Code 8.5-10.1 [facility] Chloride molar conc 101 mmol/L Invalid Interpretation Code 98-107 [facility] Cholesterol in HDL mass conc 71 mg/dL Invalid Interpretation Code [facility] Cholesterol in LDL mass conc 89 mg/dL Invalid Interpretation Code 0-130 [facility] Cholesterol mass conc 173 mg/dL Invalid Interpretation Code 200 [facility] CO2 30.0 mmol/L Invalid Interpretation Code 21.0-32.0 [facility] CO2 ppres (BldV) 30.0 mmol/L 21.0-32.0 [facility] Creatinine mass conc 0.68 mg/dL Invalid Interpretation Code 0.55-1.02 [facility] eGFR (non-black) 128 mL/min/{1.73_m2} Invalid Interpretation Code >60 [facility] EST GFR - AA 128 mL/min >60 [facility] GFR/1.73 sq M predicted among non-blacks MDRD vol rate/area (S/P/Bld) 106 mL/min/{1.73_m2} Invalid Interpretation Code >60 [facility] Globulin 4.3 g/dL High 2.3-3.5 [facility] Globulin mass conc (S) 4.3 g/dL High 2.3-3.5 [facility] Glucose 85 mg/dL Invalid Interpretation Code 70-110 [facility] Glucose mass conc 85 mg/dL 70-110 [facility] lactate dehydrogenase - serum 198 U/L Invalid Interpretation Code 84-246 [facility] LDH 198 U/L 84-246 [facility] Lipoprotein.pre-beta mass conc 13 mg/dL Invalid Interpretation Code 5-40 [facility] PHOS 3.5 mg/dL 2.5-4.9 [facility] Phosphorus Concentratation-Random 3.5 mg/dL Invalid Interpretation Code 2.5-4.9 [facility] Potassium molar conc 3.4 mmol/L Low 3.5-5.1 [facility] Protein mass conc 9.0 g/dL High 6.4-8.2 [facility] Sodium molar conc 137 mmol/L Invalid Interpretation Code 136-145 [facility] Triglyceride mass conc 66 mg/dL Invalid Interpretation Code [facility] Urate mass conc 3.7 mg/dL Invalid Interpretation Code 2.6-6.0 [facility] Urea nitrogen mass conc 14 mg/dL Invalid Interpretation Code 7-18 [facility] Urea nitrogen/Creatinine mass ratio 20.4 RATIO High 10-20 [facility] Lab Report: Nicotine Urine D rug Screenon 02-09-2017 COT DRG SCREEN Negative <200 ng/mL [facility] GE use only - for LinkLog[employer] import when terms are not otherwise specified Negative Invalid Interpretation Code <200 ng/mL [facility] Lab Report: Urinalysis, Empl omarvin 02-09-2017 Albumin Ql (U) Negative Negative [facility] [facility] Bilirubin Ql (U) Negative Negative [facility] Clarity Nom (U) Sl. Cloudy Invalid Interpretation Code Clear [facility] Color Nom (U) Yellow Invalid Interpretation Code Yellow [facility] Glucose Ql (U) Normal mg/dl Invalid Interpretation Code Normal [facility] Ketones mass conc (U) Negative Negative [facility] Leukocyte esterase Test strip Ql (U) Negative Invalid Interpretation Code Negative [facility] Nitrite Urine Negative Invalid Interpretation Code Negative [facility] Occult Blood, urine Negative Invalid Interpretation Code Negative [facility] OCCULT BLOOD-UR Negative Negative [facility] pH (U) 7.0 [pH] 5.0 - 8.0 [facility] Specific gravity Refractometry Relative Density (U) 1.010 Invalid Interpretation Code 1.002-1.030 [facility] Urine, bilirubin presence Negative Invalid Interpretation Code Negative [facility] Urine, ketones presence Negative Invalid Interpretation Code Negative [facility] Urine, pH 7.0 [pH] Invalid Interpretation Code 5.0 - 8.0 [facility] Urine, protein Negative Invalid Interpretation Code Negative [facility] urobilinogen, urine, by dipstick Normal mg/dl Invalid Interpretation Code Normal [facility] Office Visit: UC: strep' pha ryngitison 11-22-2016 Documentation of current medications (procedure) Done Invalid Interpretation Code [facility] Work Phone: Fall risk assessment No [facility] Work Phone: Protein mass conc Done [facility] Work Phone: Rapid strep test Positive Invalid Interpretation Code [facility] Work Phone: S. pyogenes DNA ASHLEY+probe Ql (Throat) Positive [facility] Work Phone: Tobacco smoking status NHIS Never smoker [facility] Work Phone: Tobacco use [facility] Never smoker Invalid Interpretation Code [facility] Work Phone: Vital Signs Date Time Vital Sign Value Performing Clinician Malina winslow 02-05-2025 08:12-0400 Body height 154.[address] Leanne Manning MD Work Phone: [facility] 02-05-2025 08:12-0400 Body mass index (BMI) [Ratio] 20.2 kg/m2 Dr. Leanne Manning MD Work Phone: [facility] 02-05-2025 08:12-0400 Body weight 48.[address] Leanne Manning MD Work Phone: [facility] 02-05-2025 08:12-0400 Diastolic blood pressure 75 mm[Hg] Dr. Leanne Manning MD Work Phone: [facility] 02-05-2025 08:12-0400 Systolic blood pressure 114 mm[Hg] Dr. Leanne Manning MD Work Phone: [facility] 01-07-2022 08:33-0400 Body height 154.[address] Arvind Ramirez Work Phone: [facility] Work Phone: 01-07-2022 08:32-0400 Body mass index (BMI) [Ratio] 20.2 kg/m2 Dr. Arvind Ramirez Work Phone: [facility] Work Phone: 01-07-2022 08:32-0400 Body weight 48.[address] Arvind Ramirez Work Phone: [facility] Work Phone: 01-07-2022 08:32-0400 Diastolic blood pressure 80 mm[Hg] Dr. Arvind Ramirez Work Phone: [facility] Work Phone: 01-07-2022 08:32-0400 Systolic blood pressure 114 mm[Hg] Dr. Arvind Ramirez Work Phone: [facility] Work Phone: 02-18-2017 [id number] BMI (Body Mass Index) 19.88 kg/m2 Leanne Manning MD [facility] 02-18-2017 [id number] Body Temperature 98.4 [degF] Leanne Manning MD [facility] 02-18-2017 11:21-0400 BP Diastolic 75 mm[Hg] Leanne Manning MD [facility] 02-18-2017 11:21-0400 BP Systolic 111 mm[Hg] Leanne Manning MD [facility] 02-18-2017 11:21-0400 Height 154.94 cm Leanne Manning MD [facility] 02-18-2017 11:0400 Pulse (Heart Rate) 85 /min Leanne Manning MD [facility] 02-18-2017 11:-0400 Respiratory Rate 16 /min Leanne Manning MD [facility] 02-18-2017 11:0400 Weight 47.72 kg Leanne Manning MD [facility] 11-22-2016 10:120400 BMI (Body Mass Index) 20.06 kg/m2 Krissy Robison LPN [facility] Work Phone: 11-22-2016 10:12-0400 Body Temperature 99 [degF] Krissy Robison LPN [facility] mikayla Work Phone: 11-22-2016 10:12-0400 BP Diastolic 64 mm[Hg] Krissy Robison LPN [facility] Work Phone: 11-22-2016 10:12-0400 BP Systolic 112 mm[Hg] Krissy Robison LPN [facility] Work Phone: 11-22-2016 10:12-0400 Height 154.94 cm Krissy Robison LPN [facility] Work Phone: 11-22-2016 10:12-0400 Pulse (Heart Rate) 82 /min Krissy Robison LPN [facility] Work Phone: 11-22-2016 10:12-0400 Pulse Oximetry 99 % Krissy Robison LPN [facility] Work Phone: 11-22-2016 10:12-0400 Respiratory Rate 14 /min Krissy Robison LPN [facility] mikayla Work Phone: 11-22-2016 10:12-0400 Weight 48.17 kg Krissy Robison LPN [facility] Work Phone: Encounters Encounter Date Encounter Type Care Provider Facility Start: 05-06-2025 ambulatory Leanne Radford lity:[facility] Start: 02-05-2025 Encounter for gynecological examination (general) (routine) without abnormal findings Leanne Manning [facility] Start: 02-05-2025 End: 02-05-[address] Leanne Manning MD -[facility] Work Phone: Start: 02-05-2025 End: 02-05-[address] Leanne Manning MD [facility] Start: 02-05-2025 End: 02-05-[address] Leanne Manning MD Work Phone: -[facility] Start: 02-01-2025 Registered Referred HEALTH RISK ASSE [facility] -Employee [facility] Start: 02-01-2025 ambulatory Health Risk Assessment Facility:[facility] Start: 01-07-2022 End: 01-07-[address] Arvind Ramirez Work Phone: [facility]-Laboratory, Specimen Start: 01-07-2022 End: 01-07-[address] Arvnid Ramirez Work Phone: [facility] Procedures Date Procedure Procedure Detail Performing Clinician Start: 02-01-2025 Serum inorganic phos phate measurement Dr. Leanne Manning MD Work Phone: Start: 02-01-2025 Urnls dip stick/tabl et reagent auto microscopy Dr. 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 eLanne Manning MD Start: 02-09-2017 End: 02-09-2017 Urinalysis Leanne Hoyt Start: 11-22-2016 End: 11-22-2016 Iaadiadoo streptococcus group a Renan JAMES Work Phone: Start: 11-22-2016 End: 11-22-2016 Rapid strep test Renan JAMES Work Phone: Plan of Treatment Date Care Activity Detail Author Start: 02-18-2017 End: 02-18-2017 Appointment Appointment [facility] Start: 11-22-2016 End: 11-22-2016 Appointment Appointment [facility] Work Phone: CBC W Auto Different ial panel - Blood [facility] MG Breast - bilatera l Screening [facility] Patient Education PHARYNGITIS [facility] Work Phone: Immunizations Immunization Date Immunization Notes Care Provider [facility] 04-30-2024 influenza, seasonal, injectable, preservative free Dr. Leanne Manning MD Work Phone: [facility] 04-18-2023 influenza, injectabl e, quadrivalent, preservative free Dr. Leanne Manning MD Work Phone: [facility] 04-28-2022 influenza, injectabl e, quadrivalent, preservative free Dr. Leanne Manning MD Work Phone: [facility] 04-23-2022 Vicenta Estrada Bivale nt Booster Dr. Leanne Manning MD Work Phone: [facility] 04-15-2021 influenza, injectabl e, quadrivalent, preservative free Dr. Leanne Manning MD Work Phone: [facility] 04-15-2021 influenza, seasonal, injectable Dr. Arvind Ramirez Work Phone: [facility] Work Phone: 08-05-2020 Vicenta (Moderna) Dr. Arvind mooney Work Phone: [facility] 07-08-2020 Covid (Moderna) Dr. Arvind mooney Work Phone: [facility] 04-08-2020 influenza, injectabl e, quadrivalent, preservative free Dr. Leanne Manning MD Work Phone: [facility] 04-08-2020 influenza, seasonal, injectable Dr. Arvind Ramirez Work Phone: [facility] Work Phone: 04-05-2019 influenza, injectabl e, quadrivalent, preservative free Dr. Leanne Manning MD Work Phone: [facility] 04-05-2019 influenza, seasonal, injectable Dr. Arvind Ramirez Work Phone: [facility] Work Phone: 04-07-2018 influenza, injectabl e, quadrivalent, preservative free Dr. Leanne Manning MD Work Phone: [facility] 04-07-2018 influenza, seasonal, injectable Dr. Arvind Ramirez Work Phone: [facility] Work Phone: 04-24-2017 influenza, injectabl e, quadrivalent, preservative free Dr. Leanne Manning MD Work Phone: [facility] 04-24-2017 influenza, seasonal, injectable Dr. Arvind Ramirez Work Phone: [facility] Work Phone: 04-09-2016 influenza, injectabl e, quadrivalent, preservative free Dr. Leanne Manning MD Work Phone: [facility] 04-09-2016 influenza, seasonal, injectable Dr. Arvind Ramirez Work Phone: [facility] Work Phone: 05-26-2015 influenza, injectabl e, quadrivalent, preservative free Dr. Leanne Manning MD Work Phone: [facility] 05-26-2015 influenza, seasonal, injectable Dr. Arvind Ramirez Work Phone: [facility] Work Phone: 04-10-2014 influenza, injectabl e, quadrivalent, preservative free Dr. Leanne Manning MD Work Phone: [facility] 04-10-2014 influenza, seasonal, injectable Dr. Arvind Ramirez Work Phone: [facility] Work Phone: 04-04-[address] Arvind Ramirez Work Phone: [facility] Payers Date Payer Category Payer Self-pay [id number] 2025 Unknown [id number] Unknown [id number] Unknown [id number] Unknown [id number] Social History Date Type Detail Facility Start: 01-07-2022 [facility] Work Phone: Start: 1985 Sex Assigned At Female [facility] Start: 02-05-2025 [facility] Never [facility] (finding) [facility] Goals Date Patient Goal Desired Activity /State Progress note 02-05-2025 Note Date & Type Note Facility 02-05-2025 Progress note [facility] Clinical Note 01-07-2022 Note Date & Type Note Facility 01-07-2022 Note [facility] Work Phone: Pap Smear Specimen Adequacy January 07, 2022 12:43pm Comment . Satisfactory for evaluation. Endocervical and/or squamous metaplasticcells (endocervical component) are present. Comment on above: Satisfactory for kenneth luation. Endocervical and/or squamous metaplasticcells (endocervical component) are present. Evaluation note Note Date & Type Note Facility Evaluation note Diagnosis Onset Date Encounter for routine gyneco logical examination noneactive [facility] Work Phone: Evaluation note Note Date & Type Note Facility Evaluation note Diagnosis Onset Date Resolution Encounter for routine gynecological examination noneactive February 05, 2025 8:10am [facility] Work Phone: Progress note Note Date & Type Note Facility Progress note Note Date/Time February 05, 2025 8:47am [facility] [address] [place] [address], [address] [place] [address] OFFICE VISIT Date of Service: 02/05/25 MR#: [id number] Acct: [id number] Name: ELIEL PINA Rep #: [id number] : 1985 Provider: Dr. 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 Required: No Is patient in pain?: No Allergies No Known Allergies Allergy (Verified 02/05/25 08:15) Medications ?Medication ?Instructions ?Recorded ?Confirmed ?Type norethindrone (contraceptive) 0.35 0.35 mg PO QDAY #84 tabs 01/16/25 02/05/25 Rx mg tablet (Hazel) tapinarof 1 % topical cream (Vtama) 1 applic topical Q DAY 02/05/25 02/05/25 History Is last menstrual period known: No Post menopausal: No Patient : No : No PFSH Medical History Psoriasis IBS (irritable bowel syndrome) Bilateral headaches Oligo-ovulation Surgical History History of breast augmentation Family History Other Hypertension Social History number of children: 3 current occupational status: employed 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 Date Name GA/Weeks Outcome Route Bth Weight Infant Gen Labor Lgth Anesthesia Del Locatn Provider FOB Unknown 2010 Liborio live - full term [facility] Unknown 2013 Erendira live - full term [facility] Unknown 2015 Lauryn live - full term [facility] HPI Encounter for routine gynecological examination Details: ELIEL PINA is a 39 year old who presents for annual exam. Last PAP: 12/28/2021 - normal History of abnormal PAP: Last mammogram: due this year History of abnormal mammogram: Colon cancer screening: nto due Other preventative health care screenings: PCP [facility] Female Reproductive History Questions: metorrhagia: No, sexually active: Yes, dyspareunia: No and PCB: No Menopausal Symptoms: No hot flashes, No night sweats, No weight change, No mood changes, No difficulty concentrating, No sleep problems and No change in libido ROS Const Constitutional: Reports as per HPI; Denies fatigue, increased appetite, poor appetite, night sweats, weight gain or weight loss Cardio Card: Denies chest pain Resp Resp: Denies cough or dyspnea GI GI: Reports as per HPI; Denies abdominal pain, bloating, constipation, nausea or vomiting : Reports as per HPI and other; Denies difficulty voiding, dysuria, hematuria, hot flashes, nipple discharge, pelvic pain, prolapse symptoms, urinary frequency, urinary incontinence, urinaryurgency, vaginal discharge, vaginal dryness, vaginal odor or vaginal pruritus Skin Skin/Breast: Denies changing lesions, breast mass, breast pain, breast skin changes or nipple discharge Psych Psych: Denies anxiety, change in libido, depression or difficulty concentrating Exam Const General: cooperative, healthy appearing, comfortable, no acute distress, well developed and well groomed HENMT Head: normal to inspection and normocephalic Ears: hearing grossly normal bilaterally and external ears normal Nose: external nose normal Face and sinus: normal facial exam Neck Neck: normal visual inspection, full ROM and no lymphadenopathy Thyroid: thyroid normal Chest Chest palpation & inspection: normal inspection of the chest Breast inspection: normal inspection of the breasts and normal inspection of theaxillae Breast palpation: normal palpation of the breasts, normal palpation of the axillae and no axillary lymphadenopathy Resp Effort & Inspection: normal respiratory effort GI Inspection: normal to inspection and non-distended Palpation: soft, no hepatosplenomegaly and no guarding General: bladder normal to palpation External Female Exam: normal external appearance, normal appearance of the urethra and no lesions Urethra: normal appearance of the urethra and normal palpation Speculum Exam - Vagina: normal appearance of the vagina and normal vaginal discharge Speculum Exam - Cervix: normal appearance of the cervix, no cervical discharge, no lesions and nontender Bimanual Exam- Vagina & Uterus: normal bimanual exam, uterine size normal, bladder normal to palpation, No tender, uterine mobility normal, consistency normal, non-tender and no cervical motion tenderness Bimanual Exam- Adnexa, other: normal adnexae, no masses and non-tender Skin General: no rashes or lesions noted Neuro General: patient alert, moves all extremities and no focal motor deficits Extrem General: normal to inspection and no pedal edema Psych Appearance: grossly normal Mental Status: mental status grossly normal Affect: normal affect Speech and Movement: speech and movement normal Attitude: cooperative Coding Level of Care Code Off vis,est,prev 18-39yrs Diagnoses Encounter for routine gynecological examination Z01.419 Assessment and Plan Assessment and Plan (1) Encounter for routine gynecological examination: Plan: Cervical cancer screening: pap up to date Breast cancer screening: start mammograms april STD prevention and contraceptive options including their risks, benefits, and alternatives were reviewed with the patient and she chooses: happy with nuvaring. Encouraged maintenance of a healthy weight and active lifestyle and handout given. Calcium/vitamin D recommendations provided. Annual exam handout including recommendations for good health guidelines and basic screening information given. Problem list up to date, see problem list details for any additional plan information. follow up in one year for annual health maintenance exam or sooner if needed. Orders: Orders [facility] MAMM (CAD)W/LASHONDA BILAT Today Z12.31 - Encounter for screening mammogram for malignant neoplasm of breast Plan Details Goals & Barriers: Goals Decrease pain Decrease spasm Improve ROM Improve ability to care for children 02/05/25 0878 <Electronically signed by Leanne lynch MD> Date _ Leanne Manning MD Cosigner Signature: Date (if applicable) CC: ~ [facility] Work Phone: Reason for referral (narrative) Note Date & Type Note Facility Reason for referral (narrative) No reason for referral information available [facility] Work Phone: Summary Purpose Family History No Family History Records Found Relationship Condition Age at Onset Recorded Date/T malia Not Specified Hypertension Unknown Advance Directives No Advanced Directives Records Found Advance Directive Response Recorded Date/ Time Living Will No December 24, 2015 1:50pm Power of Life Manager No December 23 6 1:50pm Chief Complaint and Reason for Visit Chief Complaint 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) Reason for Visit Encounter for routin e gynecological examination Chief Complaint Admit Date 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 Leanne Manning MD Primary Care Provider Acti ve Start: February 01, 2025 Health Risk Assessment Attending Provider Active Start: February 01, 2025 Health Risk Assessment Referring Provider Active Start: February 01, 2025 Team Status: Inactive Member Role/Relationship Status Dates Dr. Arvind Ramirez MD Referring Provider Active Start: February 05, 2025 End: February 05, 2025 Dr. Leanne Manning MD Attending Provider Active Start: February 05, 2025 End: February 05, 2025 FOR RECORDS PERTAINING TO PATIENTS WHO ARE OR HAVE BEEN ENROLLED IN A CHEMICAL DEPENDENCY/SUBSTANCEABUSE PROGRAM, SOME INFORMATION MAY BE OMITTED. This clinical summary was aggregated from multiple sources. Caution should be exercised in using it in the provision of clinical care. This summary normalizes information from multiple sources, and as a consequence, information in this document may materially change the coding, format and clinical context of patient data. In addition, data may be omitted in some cases. CLINICAL DECISIONS SHOULD BE BASED ON THE PRIMARY CLINICAL RECORDS. [facility] [email or web address] [facility]. provides no warranty or guarantee of the accuracy or completeness of information in this document.
== END | disposition home or self-care (01) ==
PROVIDERS: PCP Family Medicine; Referring Provider Obstetrics & Gynecology; Visit Provider Obstetrics & Gynecology
DX: Z12.31 Encounter for screening mammogram for malignant neoplasm of breast (principal)
CPT/HCPCS: 77063; 77067